=== PATIENT | female | born 1995 | race Caucasian/White ===

== ENCOUNTER 2018-01-18 12:43 | Emergency (ER) | payer OTHER ==
[2018-01-18] MEDS: Acetaminophen 500 MG Tab PO ONE (13:05)
[2018-01-18] MEDS: Sodium Chloride 0.9% 1,000 ML IV ONE (13:05)
[2018-01-18] MEDS: Sodium Chloride 0.9% 10 ML Syringe FLUSH PRN (13:05)
[2018-01-18] MEDS: Ondansetron 4 MG/2 ML SDV IV ONE ×2 (14:09→16:33)
[2018-01-18] MEDS: Ketorolac 30 MG/ML SDV IVPUSH ONE (14:09)
[2018-01-18 14:51] LABS: CHLORIDE,CL 106 mmol/L (101-111); SODIUM,NA 138 mmol/L (135-145)
[2018-01-18] MEDS: Levofloxacin/Dextrose 5%-Water 500 MG in Premix Bag 1 BAG IV ONE (15:40)
[2018-01-18] MEDS: HYDROmorphone 0.5 MG/0.5 ML Syringe IVPUSH ONE (16:21)
--- NOTE | 2018-01-18 16:24 | EDM.PDOC ---
Scribed by Meaghan Doll 01/18/18 [id number] for Wes Pro MD ED HPI GENERAL MEDICAL PROBLEM - General Chief Complaint: Flank Pain Stated Complaint: KIDNEY STONE, PAIN Time Seen by Provider: 01/18/18 13:22 Source of Information: Reports: Patient, RN, RN Notes Reviewed History Limitations: Reports: No Limitations - History of Present Illness INITIAL COMMENTS - FREE TEXT/NARRATIVE: Patient had onset of left flank pain yesterday and today the pain was worse. She then developed fever with nausea and vomiting and bloody urine. She has also become in the left lower quadrant abdomen and denies any diarrhea, constipation or other symptoms. Onset Date: 01/17/18 Duration: Getting Worse Location: Reports: Abdomen (and flank) Quality: Reports: Ache Severity: Severe Improves with: Reports: None Worsens with: Reports: None Associated Symptoms: Reports: No Other Symptoms Left Flank Pain Score (Numeric/FACES): 10 - Related Data Allergies Allergy/AdvReac Type Severity Reaction Status Date / Time Penicillins Allergy Severe wind pipe Verified 01/18/18 12:55 closes Home Meds: Home Meds . [No Known Home Meds] 01/18/18 [History] Social & Family History - Family History Family Medical History: Noncontributory ED ROS GENERAL - Review of Systems Review Of Systems: ROS reveals no pertinent complaints other than HPI. ED EXAM, RENAL/ - Physical Exam Exam: See Below Exam Limited By: No Limitations General Appearance: Alert, WD/WN, No Apparent Distress Eye Exam: Bilateral Eye: Normal Inspection Ears: Normal External Exam, Normal Canal, Hearing Grossly Normal, Normal TMs Nose: Normal Inspection, Normal Mucosa, No Blood Throat/Mouth: Normal Inspection, Normal Lips, Normal Teeth, Normal Gums, Normal Oropharynx, Normal Voice, No Airway Compromise Head: Atraumatic, Normocephalic Neck: Normal Inspection, Supple, Non-Tender, Full Range of Motion Respiratory/Chest: No Respiratory Distress, Lungs Clear, Normal Breath Sounds, No Accessory Muscle Use, Chest Non-Tender Cardiovascular: Normal Peripheral Pulses, Regular Rate, Rhythm, No Edema, No Gallop, No JVD, No Murmur, No Rub GI/Abdominal: Other (acutely tender at left lower quadrant.). No: Guarding, Rigid, Rebound (Female) Exam: Deferred Rectal (Female) Exam: Deferred Back Exam: Normal Inspection, Full Range of Motion. No: CVA Tenderness (L), CVA Tenderness (R) Extremities: Normal Inspection, Normal Range of Motion, Non-Tender, Normal Capillary Refill, No Pedal Edema Neurological: Alert, Oriented, CN II-XII Intact, Normal Cognition, Normal Gait, No Motor/Sensory Deficits Psychiatric: Normal Affect, Normal Mood Skin Exam: Warm, Dry, Intact, Normal Color, No Rash Course - Vital Signs Last Recorded V/S: Last Vital Signs Temp 37.7 C 01/18/18 14:14 Pulse 89 01/18/18 14:14 Resp 16 01/18/18 14:14 BP 110/60 01/18/18 14:14 Pulse Ox 96 01/18/18 14:14 - Orders/Labs/Meds Orders: Active Orders 24 hr Category Date Time Status Peripheral IV Care [RC] . DIRECTED Care 01/18/18 13:47 Active CULTURE BLOOD [BC] Stat Lab 01/18/18 16:08 Received CULTURE BLOOD [BC] Stat Lab 01/18/18 16:12 Received CULTURE URINE [RM] Stat Lab 01/18/18 12:55 Received Levofloxacin/Dextrose 5%-Water [Levaquin in D5W 500 MG/ Med 01/18/18 15:34 Active 100 ML] 500 mg Premix Bag 1 bag IV ONETIME Sodium Chloride 0.9% [Saline Flush] Med 01/18/18 13:47 Active 10 ml FLUSH ASDIRECTED PRN Blood Culture x2 Reflex Set [OM.PC] Stat Oth 01/18/18 15:56 Ordered Peripheral IV Insertion Adult [OM.PC] Stat Oth 01/18/18 13:47 Ordered Medication Orders Levofloxacin/Dextrose 500 mg/ (Premix) 100 mls @ 100 mls/hr IV ONETIME ONE Stop: 01/18/18 16:33 Last Admin: 01/18/18 15:40 Dose: 100 mls/hr Sodium Chloride (Saline Flush) 10 ml FLUSH ASDIRECTED PRN PRN Reason: Keep Vein Open Last Admin: 01/18/18 13:05 Dose: 10 ml Labs: Laboratory Tests 01/18/18 01/18/18 01/18/18 Range/Units 12:55 12:55 14:03 WBC 13.2 H (5.0-10.0) 10^3/uL RBC 4.37 (4.2-5.4) 10^6/uL Hgb 13.4 (12.0-16.0) g/dL Hct 38.9 (37.0-47.0) % MCV 89.0 (80-100) fL MCH 30.7 (27.0-34.0) pg MCHC 34.4 (33.0-35.0) g/dL Plt Count 254 (150-450) 10^3/uL Neut % (Auto) 84.3 H (42.2-75.2) % Lymph % (Auto) 4.7 L (20.5-50.1) % [place] % (Auto) 10.7 H (2-8) % Eos % (Auto) 0.1 L (1.0-3.0) % Baso % (Auto) 0.2 (0.0-1.0) % Sodium (135-145) mmol/L Potassium (3.6-5.0) mmol/L Chloride (101-111) mmol/L Carbon Dioxide (21.0-31.0) mmol/L Anion Gap BUN (7-18) mg/dL Creatinine (0.6-1.3) mg/dL Est Cr Clr Drug Dosing mL/min Estimated GFR (MDRD) BUN/Creatinine Ratio Glucose (74-105) mg/dL Calcium (8.4-10.2) mg/dl Total Bilirubin (0.2-1.0) mg/dL AST (10-42) IU/L ALT (10-60) IU/L Alkaline Phosphatase (42-121) IU/L Total Protein (6.7-8.2) g/dl Albumin (3.2-5.5) g/dl Globulin Albumin/Globulin Ratio Urine Color Yellow (YELLOW) Urine Appearance Cloudy (CLEAR) Urine pH 8.5 (5.0-9.0) Ur Specific [place] 1.020 (1.005-1.030) Urine Protein Trace H (NEGATIVE) Urine Glucose (UA) Negative (NEGATIVE) Urine Ketones 15 H (NEGATIVE) Urine Occult Blood Small H (NEGATIVE) Urine Nitrite Negative (NEGATIVE) Urine Bilirubin Negative (NEGATIVE) Urine Urobilinogen 0.2 (0.2-1.0) mg/dL Ur Leukocyte Esterase Moderate H (NEGATIVE) Urine RBC 0-5 /HPF Urine WBC 40-50 H (0-5/HPF) /HPF Ur Epithelial Cells Many H /HPF Urine Bacteria Few (0-FEW/HPF) /HPF Urine Mucus Few H /LPF Urine HCG, Qual Negative 01/18/18 Range/Units 14:03 WBC (5.0-10.0) 10^3/uL RBC (4.2-5.4) 10^6/uL Hgb (12.0-16.0) g/dL Hct (37.0-47.0) % MCV (80-100) fL MCH (27.0-34.0) pg MCHC (33.0-35.0) g/dL Plt Count (150-450) 10^3/uL Neut % (Auto) (42.2-75.2) % Lymph % (Auto) (20.5-50.1) % [place] % (Auto) (2-8) % Eos % (Auto) (1.0-3.0) % Baso % (Auto) (0.0-1.0) % Sodium 138 (135-145) mmol/L Potassium 3.5 L (3.6-5.0) mmol/L Chloride 106 (101-111) mmol/L Carbon Dioxide 23.0 (21.0-31.0) mmol/L Anion Gap 12.5 BUN 20 H (7-18) mg/dL Creatinine 1.0 (0.6-1.3) mg/dL Est Cr Clr Drug Dosing 74.91 mL/min Estimated GFR (MDRD) > 60 BUN/Creatinine Ratio 20.00 Glucose 108 H (74-105) mg/dL Calcium 8.9 (8.4-10.2) mg/dl Total Bilirubin 1.0 (0.2-1.0) mg/dL AST 24 (10-42) IU/L ALT 14 (10-60) IU/L Alkaline Phosphatase 53 (42-121) IU/L Total Protein 7.0 (6.7-8.2) g/dl Albumin 4.0 (3.2-5.5) g/dl Globulin 3.0 Albumin/Globulin Ratio 1.33 Urine Color (YELLOW) Urine Appearance (CLEAR) Urine pH (5.0-9.0) Ur Specific [place] (1.005-1.030) Urine Protein (NEGATIVE) Urine Glucose (UA) (NEGATIVE) Urine Ketones (NEGATIVE) Urine Occult Blood (NEGATIVE) Urine Nitrite (NEGATIVE) Urine Bilirubin (NEGATIVE) Urine Urobilinogen (0.2-1.0) mg/dL Ur Leukocyte Esterase (NEGATIVE) Urine RBC /HPF Urine WBC (0-5/HPF) /HPF Ur Epithelial Cells /HPF Urine Bacteria (0-FEW/HPF) /HPF Urine Mucus /LPF Urine HCG, Qual Meds: Medications Generic Name Dose Route Start Last Admin Trade Name Freq PRN Reason Stop Dose Admin Levofloxacin/Dextrose 500 mg/ 100 mls @ 100 mls/hr 01/18/18 15:34 01/18/18 15 :40 Premix IV 01/18/18 16:33 100 mls/hr ONETIME ONE Administration Sodium Chloride 10 ml 01/18/18 13:47 01/18/18 13:05 Saline Flush FLUSH 10 ml ASDIRECTED PRN Administration Keep Vein Open Discontinued Medications Generic Name Dose Route Start Last Admin Trade Name Freq PRN Reason Stop Dose Admin Acetaminophen 1,000 mg 01/18/18 12:57 01/18/18 13:05 Tylenol Extra Strength PO 01/18/18 12:58 1,000 mg ONETIME ONE Administration Hydromorphone HCl 1 mg 01/18/18 16:12 01/18/18 16:21 Dilaudid IVPUSH 01/18/18 16:13 1 mg ONETIME ONE Administration Sodium Chloride 1,000 mls @ 999 mls/hr 01/18/18 13:47 01/18/18 13:05 Normal Saline IV 01/18/18 14:47 999 mls/hr .BOLUS ONE Administration Ketorolac Tromethamine 30 mg 01/18/18 13:47 01/18/18 14:09 Toradol IVPUSH 01/18/18 13:48 30 mg ONETIME ONE Administration Ondansetron HCl 4 mg 01/18/18 13:47 01/18/18 14:09 Zofran IV 01/18/18 13:48 4 mg ONETIME ONE Administration - Radiology Interpretation Free Text/Narrative:: CT abdomen and pelvis: 7mm obstructive proximal left ureteral calculus associated with moderate proximal hydroureteronephrosis, periureteral and perinephritic stranding. Boggy enlargement of the left kidney. No urinoma. See rad report. Departure - Departure Time of Disposition: 16:01 Disposition: DC/Tfer to Acute Hospital 02 Condition: Serious Clinical Impression: Hydronephrosis with renal and ureteral calculus obstruction, UTI, Urinary tract infectious disease - Discharge Information Forms: ED Department Discharge, Interfacility Transfer EMTALA - My Orders Last 24 Hours: My Active Orders 01/18/18 12:55 CULTURE URINE [RM] Stat 01/18/18 13:47 Peripheral IV Care [RC] . DIRECTED Sodium Chloride 0.9% [Saline Flush] 10 ml FLUSH ASDIRECTED PRN Peripheral IV Insertion Adult [OM.PC] Stat 01/18/18 15:34 Levofloxacin/Dextrose 5%-Water [Levaquin in D5W 500 MG/100 ML] 500 mg Premix Bag 1 bag IV ONETIME 01/18/18 15:56 Blood Culture x2 Reflex Set [OM.PC] Stat 01/18/18 16:08 CULTURE BLOOD [BC] Stat 01/18/18 16:12 CULTURE BLOOD [BC] Stat - Assessment/Plan Last 24 Hours: My Active Orders 01/18/18 12:55 CULTURE URINE [RM] Stat 01/18/18 13:47 Peripheral IV Care [RC] . DIRECTED Sodium Chloride 0.9% [Saline Flush] 10 ml FLUSH ASDIRECTED PRN Peripheral IV Insertion Adult [OM.PC] Stat 01/18/18 15:34 Levofloxacin/Dextrose 5%-Water [Levaquin in D5W 500 MG/100 ML] 500 mg Premix Bag 1 bag IV ONETIME 01/18/18 15:56 Blood Culture x2 Reflex Set [OM.PC] Stat 01/18/18 16:08 CULTURE BLOOD [BC] Stat 01/18/18 16:12 CULTURE BLOOD [BC] Stat I have read and agree with the documentation that has been completed regarding this visit. By signing this record, I attest that the documentation was completed in my physical presence and is an accurate record of the encounter.
[2018-01-18] MEDS: Ondansetron 4 MG/2 ML SDV ONE (16:33)
== END 2018-01-18 17:28 ==
LOC: DL.ED 12:43
DX: N13.2 Hydronephrosis with renal and ureteral calculous obstruction (principal); N39.0 Urinary tract infection, site not specified; Z88.0 Allergy status to penicillin
CPT/HCPCS: 36415; 74176; 80053; 81001; 81025; 85025; 87040; 87086; 87088; 87186; 96361; 96365; 96375; 96376; 99285; A9270-GY; J1170; J1885; J1956; J2405; J7030; J7050